=== PATIENT | male | born 1980 | race Caucasian/White ===

== ENCOUNTER 2017-03-13 07:20 | Inpatient (IN) ==
--- NOTE | 2017-03-11 17:01 | XRay Report ---
CLINICAL INFORMATION: Preoperative evaluation TECHNIQUE: Upright PA and lateral chest x-ray COMPARISON: None. FINDINGS: Lungs are negative. No parenchymal infiltrate or mass. Heart size and vascularity are normal. No pulmonary congestion. No pulmonary edema. Karie and mediastinum are negative. No pleural fluid. Incidental note is made of a catheter consistent with ventriculoperitoneal shunt catheter. IMPRESSION: Negative PA and lateral chest x-ray Interpreted and Authenticated by: Tom Field 03/11/17
[2017-03-11 18:13] LABS: Basophils # (Auto) 0 K/mcL (0.0-0.3); Basophils % (Auto) 0.7 % (0.0-2.0); Eosinophils # (Auto) 0 K/mcL (0.0-0.7); Eosinophils % (Auto) 0.4 % (0.0-7.0); Granulocytes % (Auto) 66.8 % (38.0-78.0); Lymphocytes # (Auto) 1.5 K/mcL (1.5-4.8); Lymphocytes % (Auto) 22.7 % (15.5-49.0); Mean Cell Volume 89.8 fL (80.0-100.0); Mean Corpuscular HGB Conc 33.8 g/dL (31.0-36.0); Mean Corpuscular Hemoglobin 30.4 pg (26.0-34.0); Monocytes # (Auto) 0.6 K/mcL (0.1-0.9); Monocytes % (Auto) 9.4 % (1.0-12.0); Platelet Count 171 K/mcL (140-440); Red Cell Distribution Width 12.1 % (11.5-14.5)
[2017-03-11 18:26] LABS: ALT/SGPT 27 U/l (0-40); Albumin 4.3 gm/dL (3.2-5.2); Albumin/Globulin Ratio 1.4 (1.0-2.3); Alkaline Phosphatase 92 U/L (39-117); Blood Urea Nitrogen 13 mg/dl (6-20)
[~2017-03-13 07:20] MED LIST: cefOXitin 2 GM in DEXTROSE 5% IN WATER 50 ML IV SCH
[2017-03-13] MEDS ORDERED: LIDOCAINE HCL/PF 100 MG/5 ML SYRINGE IV ONE (08:10)
[2017-03-13] MEDS ORDERED: ROCURONIUM 10 MG/ML ML IV ONE (08:10)
[2017-03-13] MEDS ORDERED: MIDAZOLAM 5 MG/5 ML VIAL IV ONE (08:10)
[2017-03-13] MEDS ORDERED: GLYCOPYRROLATE 0.2 MG/ML VIAL IV ONE (08:10)
[2017-03-13] MEDS ORDERED: ONDANSETRON 4 MG/2 ML VIAL IV ONE (08:10)
[2017-03-13] MEDS ORDERED: DEXAMETHASONE 10 MG/ML VIAL IV ONE (08:10)
[2017-03-13] MEDS ORDERED: PROPOFOL 200 MG/20 ML VIAL IV ONE (08:10)
[2017-03-13] MEDS ORDERED: fentaNYL 100 MCG/2 ML VIAL IV ONE (08:10)
[2017-03-13] MEDS ORDERED: METOPROLOL TARTRATE 5 MG/5 ML VIAL IV PRN (09:02)
[2017-03-13] MEDS ORDERED: FLUMAZENIL 0.1 MG/ML ML IV PRN (09:02)
[2017-03-13] MEDS ORDERED: METHOCARBAMOL 1,000 MG/10 ML VIAL IV PRN (09:02)
[2017-03-13] MEDS ORDERED: IPRATROPIUM/ALBUTEROL 3 ML AMPUL.NEB NEB PRN (09:02)
[2017-03-13] MEDS ORDERED: MEPERIDINE 25 MG/ML SYRINGE IV PRN (09:02)
[2017-03-13] MEDS ORDERED: fentaNYL 100 MCG/2 ML VIAL IV PRN (09:02)
[2017-03-13] MEDS ORDERED: NALOXONE HCL 0.4 MG/ML VIAL IV PRN (09:02)
[2017-03-13] MEDS ORDERED: ePHEDrine 50 MG/ML AMPUL IV PRN (09:02)
[2017-03-13] MEDS ORDERED: diphenhydrAMINE 50 MG/ML VIAL IV PRN (09:02)
[2017-03-13] MEDS ORDERED: ATROPINE SULFATE 0.4 MG/ML VIAL IV PRN (09:02)
[2017-03-13] MEDS ORDERED: ONDANSETRON 4 MG/2 ML VIAL IV PRN (09:02)
[2017-03-13] MEDS ORDERED: BENZOCAINE/MENTHOL 1 LOZENGE PO PRN (09:02)
[2017-03-13] MEDS ORDERED: LACTATED RINGERS 1,000 ML IV SCH (09:15)
--- NOTE | 2017-03-13 09:31 | Brief Operative Note ---
Date of procedure: 03/13/17 Pre-op diagnosis: PERITONEAL CYST ,V-P CATHETER Post-op diagnosis: other (PERITONEAL CYST AND V-P CATHETER) Procedure: LAPAROTOMY WITH DRAINAGE OF PERITONEAL CYST AND REPOSITION OF PERITONEAL CATHETER Grafts/Implants: No Anesthesia: GETA Findings: VERY LARGE THICK WALLED CYST SURROUNDING PERITONEAL PORTION OF V-P SHUNT Complications: none Surgeon: Jay Montejo Estimated blood loss (cc): 15 Specimens Removed/Pathology: none sent Condition: stable Disposition: PACU
--- NOTE | 2017-03-13 09:41 | XRay Report ---
CLINICAL INFORMATION: Postsurgical follow-up. Instrument count. Status post repositioning of a peritoneal dialysis catheter TECHNIQUE: AP, supine abdomen COMPARISON: None. FINDINGS: There is a peritoneal dialysis catheter. There are skin esha in a vertical midline incision. No other radiopaque foreign body within the abdomen. No surgical instrument or sponge. Bowel gas pattern is unremarkable. IMPRESSION: Negative supine abdomen for instrument count Interpreted and Authenticated by: Tom Field 03/13/17
[2017-03-13] MEDS: HYDROmorphone 2 MG/ML SYRINGE IV PRN ×5 (10:00→22:59)
[2017-03-13] MEDS ORDERED: ALBUTEROL SULFATE 1 PUFF INHALER INH PRN (13:59)
[2017-03-13] MEDS: 0.9 % SODIUM CHLORIDE 1,000 ML IV SCH (14:34)
[2017-03-13] MEDS: 0.9 % SODIUM CHLORIDE 10 ML SYRINGE IV SCH ×2 (14:53→23:00)
[2017-03-13] MEDS: PANTOPRAZOLE 40 MG PACKET PO SCH (17:35)
[2017-03-13] MEDS: ONDANSETRON 4 MG/2 ML VIAL IV PRN (22:49)
[2017-03-14] MEDS: ONDANSETRON 4 MG/2 ML VIAL IV PRN ×2 (03:07→06:49)
[2017-03-14] MEDS: 0.9 % SODIUM CHLORIDE 10 ML SYRINGE IV SCH ×4 (03:07→21:53)
[2017-03-14] MEDS: HYDROmorphone 2 MG/ML SYRINGE IV PRN ×3 (03:15→13:32)
[2017-03-14] MEDS: PANTOPRAZOLE 40 MG PACKET PO SCH (08:22)
[2017-03-14] MEDS: 0.9 % SODIUM CHLORIDE 1,000 ML IV SCH ×3 (09:55→19:30)
--- NOTE | 2017-03-14 12:37 | General Surgery Progress Note ---
Subjective Patient reports: still having pain, no flatus, no bowel movement, nausea, vomiting, afebrile Narrative: Note initiated : 03/14/17 at 12:35 pm Service Date, if different from initiated Date: [] Patient: Nirmal Chow 36 y/o M admitted on for Reposition Peritoneal Catheter. Chief Complaint: [Patient has had progressive abdominal distention overnight. He had decreased urine output and had emesis 4 with a total volume approaching 1 L. He has hiccups and heartburn. He has been afebrile. At this time he only complains of tightness in his abdomen. He has not had any flatus.] Objective Temp Pulse Resp BP Pulse Ox 98.2 F 84 16 118/76 96 03/14/17 11:26 03/14/17 11:26 03/14/17 11:26 03/14/17 11:26 03/14/17 11:26 - Additional Data Intake & Output - Last 24 hours: Intake & Output 03/12/17 03/13/17 03/14/17 03/15/17 05:59 05:59 05:59 05:59 Intake Total 2300 / 2300 1088 / 1088 Output Total 4705 / 4705 345 / 345 Balance -2405 / -2405 743 / 743 Weight 156 lb 11.2 oz 156 lb 11.2 oz - General physical appearance chronically ill - Neck no venous distension - Respiratory clear to auscultation - Cardiovascular Cardiovascular exam: Present: normal rate and rhythm, RRR, +S1, +S2. Absent: gallop, JVD, systolic murmur - Abdomen tender, distended (Abdomen is tightly distended with rare active bowel sounds. 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
--- NOTE | 2017-03-14 13:38 | XRay Report ---
CLINICAL INFORMATION: Previous abdominal surgery. Probable ileus. TECHNIQUE: Supine and upright abdomen COMPARISON: 03/13/2017 FINDINGS: There is a catheter within the abdomen, unchanged. There are skin esha in a vertical midline incision. There is gas throughout the small bowel with mild dilatation. Maximum small bowel diameter measures approximately 3.5 cm. There are small bowel air-fluid levels. There is gas and fecal material ascending colon. No significant gas within the distal transverse colon, descending colon, or sigmoid colon. No pneumoperitoneum. No biliary or portal venous gas. Dilated gas-filled small bowel is a new finding since 03/13/2017. Findings may be due to postoperative ileus although mechanical small bowel obstruction is possible. Continued follow-up recommended. IMPRESSION: 1. Abnormal bowel gas pattern with dilated gas-filled small bowel and air-fluid levels. 2. Findings are new since 03/13/2017 3. Appearance may be consistent with mechanical small bowel obstruction or postoperative ileus. Interpreted and Authenticated by: Tom Field 03/14/17
[2017-03-14 16:30] LABS: Basophils # (Auto) 0 K/mcL (0.0-0.3); Basophils % (Auto) 0 % (0.0-2.0); Eosinophils # (Auto) 0 K/mcL (0.0-0.7); Eosinophils % (Auto) 0 % (0.0-7.0); Granulocytes % (Auto) 85.2 % (38.0-78.0); Lymphocytes # (Auto) 0.9 K/mcL (1.5-4.8); Lymphocytes % (Auto) 6.3 % (15.5-49.0); Mean Cell Volume 90.3 fL (80.0-100.0); Mean Corpuscular HGB Conc 33.4 g/dL (31.0-36.0); Mean Corpuscular Hemoglobin 30.2 pg (26.0-34.0); Monocytes # (Auto) 1.2 K/mcL (0.1-0.9); Monocytes % (Auto) 8.5 % (1.0-12.0); Platelet Count 188 K/mcL (140-440); RBC 5.37 M/mcL (4.50-5.90); Red Cell Distribution Width 12.7 % (11.5-14.5)
[2017-03-14 16:53] LABS: ALT/SGPT 22 U/l (0-40); Albumin/Globulin Ratio 1.2 (1.0-2.3); Alkaline Phosphatase 86 U/L (39-117); Bilirubin,Direct < 0.2 mg/dL (0.0-0.3); Blood Urea Nitrogen 10 mg/dl (6-20); Gamma Glutamyl Transpeptidase 11 U/L (8-61); Magnesium 1.8 mg/dL (1.6-2.5); Uric Acid 3.1 mg/dL (2.5-8.0)
[2017-03-14] MEDS ORDERED: POTASSIUM PHOSPHATE 40 MEQ in DEXTROSE 5% IN WATER 500 ML IV ONE (17:09)
[2017-03-14] MEDS: METOCLOPRAMIDE 10 MG/2 ML VIAL IV SCH ×2 (17:43→23:36)
[2017-03-14] MEDS: PANTOPRAZOLE 40 MG VIAL IV SCH (17:43)
[2017-03-14] MEDS ORDERED: POTASSIUM PHOSPHATE 22 MEQ/5 ML VIAL IV ONE (19:13)
--- NOTE | 2017-03-14 19:13 | XRay Report ---
CLINICAL INFORMATION: Nasogastric tube placement TECHNIQUE: AP portable upright abdomen x-ray COMPARISON: 03/14/2017 FINDINGS: Esophagogastric tube in the stomach. The sidehole of this catheter is in the body of the stomach with the tip directed toward the fundus. There is persistent dilated gas-filled small bowel within the abdomen. A sending colon and hepatic flexure gas-filled. Transverse colon and descending colon are not visualized. No pneumoperitoneum IMPRESSION: Esophagogastric tube in the stomach. Interpreted and Authenticated by: Tom Field 03/14/17
[2017-03-15] MEDS: ONDANSETRON 4 MG/2 ML VIAL IV PRN (03:24)
[2017-03-15] MEDS: METOCLOPRAMIDE 10 MG/2 ML VIAL IV SCH ×4 (05:20→23:24)
[2017-03-15] MEDS: 0.9 % SODIUM CHLORIDE 10 ML SYRINGE IV SCH ×3 (05:44→22:28)
[2017-03-15] MEDS: 0.9 % SODIUM CHLORIDE 1,000 ML IV SCH ×5 (05:50→23:24)
[2017-03-15 07:08] LABS: Basophils # (Auto) 0.1 K/mcL (0.0-0.3); Basophils % (Auto) 0.6 % (0.0-2.0); Eosinophils # (Auto) 0 K/mcL (0.0-0.7); Eosinophils % (Auto) 0.1 % (0.0-7.0); Granulocytes % (Auto) 81.5 % (38.0-78.0); Lymphocytes # (Auto) 1.1 K/mcL (1.5-4.8); Lymphocytes % (Auto) 8.3 % (15.5-49.0); Mean Corpuscular HGB Conc 34.3 g/dL (31.0-36.0); Mean Corpuscular Hemoglobin 30.9 pg (26.0-34.0); Monocytes # (Auto) 1.3 K/mcL (0.1-0.9); Monocytes % (Auto) 9.5 % (1.0-12.0); Platelet Count 161 K/mcL (140-440); RBC 4.73 M/mcL (4.50-5.90); Red Cell Distribution Width 12.9 % (11.5-14.5)
[2017-03-15] MEDS: PANTOPRAZOLE 40 MG VIAL IV SCH ×2 (07:30→17:12)
[2017-03-15 07:46] LABS: ALT/SGPT 20 U/l (0-40); Albumin 3.3 gm/dL (3.2-5.2); Albumin/Globulin Ratio 1.1 (1.0-2.3); Alkaline Phosphatase 71 U/L (39-117); Bilirubin,Direct < 0.2 mg/dL (0.0-0.3); Blood Urea Nitrogen 8 mg/dl (6-20); Gamma Glutamyl Transpeptidase 12 U/L (8-61); Magnesium 1.6 mg/dL (1.6-2.5); Uric Acid 2.4 mg/dL (2.5-8.0)
[2017-03-15] MEDS ORDERED: MAGNESIUM SULFATE 32.48 MEQ in DEXTROSE 5% IN WATER 50 ML IV ONE (10:11)
[2017-03-15] MEDS ORDERED: POTASSIUM PHOSPHATE 40 MEQ in DEXTROSE 5% IN WATER 500 ML IV ONE (10:12)
--- NOTE | 2017-03-15 11:05 | XRay Report ---
CLINICAL INFORMATION: Follow-up postsurgical ileus TECHNIQUE: AP supine and upright abdomen COMPARISON: 03/14/2017 and 03/13/2017 FINDINGS: Esophagogastric tube in the stomach. There is small bowel gas with mild dilatation. Dilatation appears slightly improved. There is gas and fecal material within the colon. Splenic flexure is visualized. Overall appearance is mildly improved since 03/14/2017. No pneumoperitoneum. No biliary or portal venous gas. IMPRESSION: Slight interval improvement as above Interpreted and Authenticated by: Tom Field 03/15/17
--- NOTE | 2017-03-15 12:34 | General Surgery Progress Note ---
Subjective Patient reports: feels better, pain is less, no flatus, no bowel movement, nausea, vomiting, afebrile Narrative: Note initiated : 03/15/17 at 12:32 pm Service Date, if different from initiated Date: [] Patient: Nirmal Chow 36 y/o M admitted on 03/14/17 for Reposition Peritoneal Catheter. Chief Complaint: [Patient had more nausea with vomiting last evening and the nasogastric tube has been placed. He has about 500 cc of NG output since the insertion of the nasogastric tube. He states that he feels better. His abdomen is less distended and is softer. Abdominal x-rays shows slightly improved ileus with movement of gas into the descending and sigmoid colon. He also has a moderate amount of solid stool.] Objective Temp Pulse Resp BP Pulse Ox 97.8 F 100 H 16 112/72 94 03/15/17 11:25 03/15/17 03:46 03/15/17 11:25 03/15/17 11:25 03/15/17 11:25 - Additional Data Intake & Output - Last 24 hours: Intake & Output 03/13/17 03/14/17 03/15/17 03/16/17 05:59 05:59 05:59 05:59 Intake Total 2300 / 2300 2088 / 2088 Output Total 4705 / 4705 2171 / 2171 150 / 150 Balance -2405 / -2405 -83 / -83 -150 / -150 Weight 156 lb 11.2 oz 171 lb 8 oz - General physical appearance no distress - ENT no congestion - Neck no masses, no bruits, trachea midline, no lymphadectomy, no venous distension - Respiratory normal expansion, normal respiratory effort, clear to percussion, clear to auscultation - Cardiovascular Cardiovascular exam: Present: normal rate and rhythm, RRR, +S1, +S2. Absent: JVD - Abdomen tender (Mildly tender abdomen with hypoactive bowel sounds; incision looks good) - Integumentary no rash, no growths, no abnormal pigmentation - Psychiatric oriented to time, oriented to person, oriented to place, speech is normal, memory intact - Labs 03/15/17 05:50 03/15/17 05:50 Diabetes panel 03/14/17 03/15/17 Range/Units 13:15 05:50 Sodium 142 141 (133-145) mmol/L Potassium 3.8 3.9 (3.3-5.1) mmol/L Chloride 102 101 (96-108) mmol/L Carbon Dioxide 26 28 (22-30) mmol/L BUN 10 8 (6-20) mg/dl Creatinine 1.0 0.8 (0.7-1.2) mg/dl Glucose 140 H 117 H (70-105) mg/dL Calcium 9.4 8.9 (8.6-10.4) mg/dl AST 21 21 (0-37) U/l ALT 22 20 (0-40) U/l Alkaline Phosphatase 86 71 (39-117) U/L Total Protein 7.3 6.3 (5.9-8.4) gm/dL Albumin 4.0 3.3 (3.2-5.2) gm/dL Triglycerides 46 47 (<150) mg/dl Calcium panel 03/14/17 03/15/17 Range/Units 13:15 05:50 Calcium 9.4 8.9 (8.6-10.4) mg/dl Phosphorus 2.3 L 2.5 L (2.7-4.5) mg/dL Albumin 4.0 3.3 (3.2-5.2) gm/dL Pituitary panel 03/14/17 03/15/17 Range/Units 13:15 05:50 Sodium 142 141 (133-145) mmol/L Potassium 3.8 3.9 (3.3-5.1) mmol/L Chloride 102 101 (96-108) mmol/L Carbon Dioxide 26 28 (22-30) mmol/L BUN 10 8 (6-20) mg/dl Creatinine 1.0 0.8 (0.7-1.2) mg/dl Glucose 140 H 117 H (70-105) mg/dL Calcium 9.4 8.9 (8.6-10.4) mg/dl Adrenal panel 03/14/17 03/15/17 Range/Units 13:15 05:50 Sodium 142 141 (133-145) mmol/L Potassium 3.8 3.9 (3.3-5.1) mmol/L Chloride 102 101 (96-108) mmol/L Carbon Dioxide 26 28 (22-30) mmol/L BUN 10 8 (6-20) mg/dl Creatinine 1.0 0.8 (0.7-1.2) mg/dl Glucose 140 H 117 H (70-105) mg/dL Calcium 9.4 8.9 (8.6-10.4) mg/dl Total Bilirubin 0.4 0.5 (0.0-1.0) mg/dL AST 21 21 (0-37) U/l ALT 22 20 (0-40) U/l Alkaline Phosphatase 86 71 (39-117) U/L Total Protein 7.3 6.3 (5.9-8.4) gm/dL Albumin 4.0 3.3 (3.2-5.2) gm/dL Assessment and Plan (1) Adynamic ileus Status: Acute Assessment and plan: Patient will be switched to inpatient Continue on nasogastric suction 2 view abdominal x-ray in the morning Current Visit: Yes (2) Peritoneal fluid collection Status: Acute Current Visit: No (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
[2017-03-16] MEDS: 0.9 % SODIUM CHLORIDE 10 ML SYRINGE IV SCH ×3 (05:20→23:26)
[2017-03-16] MEDS: METOCLOPRAMIDE 10 MG/2 ML VIAL IV SCH ×4 (05:20→23:26)
[2017-03-16] MEDS: 0.9 % SODIUM CHLORIDE 1,000 ML IV SCH ×4 (06:16→23:27)
[2017-03-16 06:57] LABS: Basophils # (Auto) 0.1 K/mcL (0.0-0.3); Basophils % (Auto) 0.6 % (0.0-2.0); Eosinophils # (Auto) 0.1 K/mcL (0.0-0.7); Eosinophils % (Auto) 1.3 % (0.0-7.0); Granulocytes % (Auto) 72.7 % (38.0-78.0); Lymphocytes # (Auto) 1.4 K/mcL (1.5-4.8); Lymphocytes % (Auto) 14.4 % (15.5-49.0); Mean Cell Volume 90.7 fL (80.0-100.0); Mean Corpuscular HGB Conc 34.3 g/dL (31.0-36.0); Mean Corpuscular Hemoglobin 31.1 pg (26.0-34.0); Monocytes # (Auto) 1.1 K/mcL (0.1-0.9); Platelet Count 125 K/mcL (140-440); RBC 4.01 M/mcL (4.50-5.90); Red Cell Distribution Width 12.4 % (11.5-14.5)
[2017-03-16 07:16] LABS: ALT/SGPT 18 U/l (0-40); Albumin/Globulin Ratio 1.3 (1.0-2.3); Alkaline Phosphatase 57 U/L (39-117); Bilirubin,Direct < 0.2 mg/dL (0.0-0.3); Blood Urea Nitrogen 8 mg/dl (6-20); Gamma Glutamyl Transpeptidase 11 U/L (8-61); Magnesium 2.1 mg/dL (1.6-2.5); Uric Acid 2.2 mg/dL (2.5-8.0)
--- NOTE | 2017-03-16 07:31 | XRay Report ---
CLINICAL INFORMATION: Postoperative ileus TECHNIQUE: AP supine and upright abdomen COMPARISON: Previous examinations dated 03/15/2017, 03/14/2017 FINDINGS: Improved bowel gas pattern. There is persistent small bowel gas with mild dilatation. There is increased gas and fecal material within the colon. No pneumoperitoneum. No biliary or portal venous gas. No pneumatosis. IMPRESSION: 1. Improved examination. 2. Mild persistent distended small bowel Interpreted and Authenticated by: Tom Field 03/16/17
[2017-03-16] MEDS: PANTOPRAZOLE 40 MG VIAL IV SCH ×2 (07:54→18:02)
[2017-03-16] MEDS: POTASSIUM PHOSPHATE 40 MEQ in DEXTROSE 5% IN WATER 500 ML IV SCH ×2 (09:13→12:32)
--- NOTE | 2017-03-16 15:47 | General Surgery Progress Note ---
Subjective Patient reports: feels better, pain is less, voiding w/o difficulty, flatus, no bowel movement, afebrile Narrative: Note initiated : 03/16/17 at 3:45 pm Service Date, if different from initiated Date: [] Patient: Nrimal Chow a 36 y/o M admitted on 03/14/17 for Reposition Peritoneal Catheter. Chief Complaint: [Mr. Chow feels much better. He had multiple episodes of flatus today though he has not had a bowel movement. His pain is well controlled and his abdominal distention is much better. He denies nausea and his nasogastric output has decreased and is less bilious. He remains afebrile and his white blood count is normal.] Objective Temp Pulse Resp BP Pulse Ox 98.3 F 84 18 118/78 94 03/16/17 12:00 03/16/17 12:00 03/16/17 12:00 03/16/17 12:00 03/16/17 12:00 - Additional Data Intake & Output - Last 24 hours: Intake & Output 03/14/17 03/15/17 03/16/17 03/17/17 05:59 05:59 05:59 05:59 Intake Total 2300 / 2300 2088 / 2088 1930 / 1930 1422 / 1422 Output Total 4705 / 4705 2171 / 2171 1625 / 1625 1994 / 1994 Balance -2405 / -2405 -83 / -83 305 / 305 -573 / -573 Weight 156 lb 11.2 oz 171 lb 8 oz 168 lb 168 lb - General physical appearance no distress - Neck no masses, no venous distension - Respiratory normal respiratory effort, clear to auscultation - Cardiovascular Cardiovascular exam: Present: normal rate and rhythm, RRR, +S1, +S2. Absent: JVD - Abdomen soft, tender (Patient has good active bowel sounds. His incision looks good. His abdominal wall is much softer) - Integumentary no rash, no growths, no abnormal pigmentation - Neurologic normal coordination, normal sensation - Musculoskeletal normal gait, normal posture - Psychiatric oriented to time, oriented to person, oriented to place, speech is normal - Labs 03/16/17 04:50 03/16/17 04:50 Diabetes panel 03/16/17 Range/Units 04:50 Sodium 142 (133-145) mmol/L Potassium 3.6 (3.3-5.1) mmol/L Chloride 106 (96-108) mmol/L Carbon Dioxide 27 (22-30) mmol/L BUN 8 (6-20) mg/dl Creatinine 0.8 (0.7-1.2) mg/dl Glucose 98 (70-105) mg/dL Calcium 8.0 L (8.6-10.4) mg/dl AST 19 (0-37) U/l ALT 18 (0-40) U/l Alkaline Phosphatase 57 (39-117) U/L Total Protein 5.4 L (5.9-8.4) gm/dL Albumin 3.0 L (3.2-5.2) gm/dL Triglycerides 59 (<150) mg/dl Calcium panel 03/16/17 Range/Units 04:50 Calcium 8.0 L (8.6-10.4) mg/dl Phosphorus 2.2 L (2.7-4.5) mg/dL Albumin 3.0 L (3.2-5.2) gm/dL Pituitary panel 03/16/17 Range/Units 04:50 Sodium 142 (133-145) mmol/L Potassium 3.6 (3.3-5.1) mmol/L Chloride 106 (96-108) mmol/L Carbon Dioxide 27 (22-30) mmol/L BUN 8 (6-20) mg/dl Creatinine 0.8 (0.7-1.2) mg/dl Glucose 98 (70-105) mg/dL Calcium 8.0 L (8.6-10.4) mg/dl Adrenal panel 03/16/17 Range/Units 04:50 Sodium 142 (133-145) mmol/L Potassium 3.6 (3.3-5.1) mmol/L Chloride 106 (96-108) mmol/L Carbon Dioxide 27 (22-30) mmol/L BUN 8 (6-20) mg/dl Creatinine 0.8 (0.7-1.2) mg/dl Glucose 98 (70-105) mg/dL Calcium 8.0 L (8.6-10.4) mg/dl Total Bilirubin 0.5 (0.0-1.0) mg/dL AST 19 (0-37) U/l ALT 18 (0-40) U/l Alkaline Phosphatase 57 (39-117) U/L Total Protein 5.4 L (5.9-8.4) gm/dL Albumin 3.0 L (3.2-5.2) gm/dL Assessment and Plan (1) Adynamic ileus Status: Acute Assessment and plan: Nasogastric tube is discontinued If he remains stable will reinstitute liquid diet in the morning Current Visit: Yes (2) Peritoneal fluid collection Status: Acute Current Visit: No (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
[2017-03-17] MEDS: 0.9 % SODIUM CHLORIDE 1,000 ML IV SCH ×2 (06:05→13:02)
[2017-03-17] MEDS: 0.9 % SODIUM CHLORIDE 10 ML SYRINGE IV SCH ×3 (06:06→23:37)
[2017-03-17] MEDS: METOCLOPRAMIDE 10 MG/2 ML VIAL IV SCH ×3 (06:33→17:58)
[2017-03-17 07:11] LABS: Basophils # (Auto) 0 K/mcL (0.0-0.3); Basophils % (Auto) 0.4 % (0.0-2.0); Eosinophils # (Auto) 0.2 K/mcL (0.0-0.7); Eosinophils % (Auto) 1.5 % (0.0-7.0); Granulocytes % (Auto) 74.4 % (38.0-78.0); Lymphocytes # (Auto) 1.4 K/mcL (1.5-4.8); Lymphocytes % (Auto) 13.6 % (15.5-49.0); Mean Cell Volume 88.7 fL (80.0-100.0); Mean Corpuscular Hemoglobin 30.2 pg (26.0-34.0); Monocytes # (Auto) 1.1 K/mcL (0.1-0.9); Monocytes % (Auto) 10.1 % (1.0-12.0); Platelet Count 133 K/mcL (140-440); RBC 4.64 M/mcL (4.50-5.90); Red Cell Distribution Width 12.1 % (11.5-14.5)
[2017-03-17 07:25] LABS: ALT/SGPT 32 U/l (0-40); Albumin 3.4 gm/dL (3.2-5.2); Albumin/Globulin Ratio 1.1 (1.0-2.3); Alkaline Phosphatase 69 U/L (39-117); Bilirubin,Direct 0.3 mg/dL (0.0-0.3); Blood Urea Nitrogen 6 mg/dl (6-20); Gamma Glutamyl Transpeptidase 25 U/L (8-61); Magnesium 1.8 mg/dL (1.6-2.5); Uric Acid 2.1 mg/dL (2.5-8.0)
[2017-03-17] MEDS: PANTOPRAZOLE 40 MG VIAL IV SCH ×2 (07:39→17:12)
--- NOTE | 2017-03-17 07:58 | XRay Report ---
CLINICAL INFORMATION: Postsurgical follow-up. Abdominal distention. TECHNIQUE: AP supine and upright abdomen COMPARISON: Multiple previous examinations including studies dated 03/16/2017, 03/15/2017, 03/14/2017, 03/13/2017 FINDINGS: Status post removal of nasogastric tube. Right-sided catheter with its tip in the pelvis remains unchanged. Skin esha remain present in a vertical midline incision. There continues to be gas and fecal material within the colon. There is persistent gas-filled small bowel. Small bowel is dilated to 4.5 cm. Dilatation may be slightly increased since removal of esophagogastric tube. There are scattered air-fluid levels. No pneumoperitoneum. No biliary or portal venous gas. No pneumatosis. Findings may be secondary to postoperative ileus. Partial mechanical small bowel structures and is possible. Continued follow-up recommended IMPRESSION: 1. Status post removal of esophagogastric tube 2. Gas and fecal material within the colon. Dilated gas-filled small bowel persists. Interpreted and Authenticated by: Tom Field 03/17/17
--- NOTE | 2017-03-17 14:30 | General Surgery Progress Note ---
Subjective Patient reports: feels better, pain is less, flatus, no bowel movement, afebrile Narrative: Note initiated : 03/17/17 at 2:28 pm Service Date, if different from initiated Date: [] Patient: Nirmal Chow 36 y/o M admitted on 03/14/17 for Reposition Peritoneal Catheter. Chief Complaint: [. He has had multiple episodes of flatus but still no bowel movement. He does not have an increased abdominal pain. He denies nausea. He states that his overall status is improved. Abdominal x-ray shows dilated colon and small bowel with stool now on the left side. He will get a fleets enema and will be started on clear liquids.] Objective Temp Pulse Resp BP Pulse Ox 97.6 F 74 16 109/60 95 03/17/17 11:42 03/17/17 11:42 03/17/17 11:42 03/17/17 11:42 03/17/17 07:39 - Additional Data Intake & Output - Last 24 hours: Intake & Output 03/15/17 03/16/17 03/17/17 03/18/17 05:59 05:59 05:59 05:59 Intake Total 8 / 2088 1930 / 1930 2422 / 2422 1997 / 1997 Output Total 2171 / 2171 1625 / 1625 3495 / 3495 1050 / 1050 Balance -83 / -83 305 / 305 -1073 / -1073 948 / 948 Weight 171 lb 8 oz 168 lb 168 lb - General physical appearance no distress - ENT no congestion - Neck no venous distension - Respiratory normal respiratory effort, clear to auscultation - Cardiovascular Cardiovascular exam: Present: normal rate and rhythm, RRR, +S1, +S2. Absent: JVD - Abdomen tender (Abdomen is mildly tender but he has active bowel sounds. His incision looks good. His abdomen remains soft.) - Integumentary no rash, no growths, no abnormal pigmentation - Neurologic normal coordination, normal sensation - Psychiatric oriented to time, oriented to person, oriented to place, speech is normal, memory intact - Labs 03/17/17 05:40 03/17/17 05:40 Diabetes panel 03/17/17 Range/Units 05:40 Sodium 141 (133-145) mmol/L Potassium 3.7 (3.3-5.1) mmol/L Chloride 103 (96-108) mmol/L Carbon Dioxide 22 (22-30) mmol/L BUN 6 (6-20) mg/dl Creatinine 0.7 (0.7-1.2) mg/dl Glucose 87 (70-105) mg/dL Calcium 8.7 (8.6-10.4) mg/dl AST 29 (0-37) U/l ALT 32 (0-40) U/l Alkaline Phosphatase 69 (39-117) U/L Total Protein 6.4 (5.9-8.4) gm/dL Albumin 3.4 (3.2-5.2) gm/dL Triglycerides 74 (<150) mg/dl Calcium panel 03/17/17 Range/Units 05:40 Calcium 8.7 (8.6-10.4) mg/dl Phosphorus 2.5 L (2.7-4.5) mg/dL Albumin 3.4 (3.2-5.2) gm/dL Pituitary panel 03/17/17 Range/Units 05:40 Sodium 141 (133-145) mmol/L Potassium 3.7 (3.3-5.1) mmol/L Chloride 103 (96-108) mmol/L Carbon Dioxide 22 (22-30) mmol/L BUN 6 (6-20) mg/dl Creatinine 0.7 (0.7-1.2) mg/dl Glucose 87 (70-105) mg/dL Calcium 8.7 (8.6-10.4) mg/dl Adrenal panel 03/17/17 Range/Units 05:40 Sodium 141 (133-145) mmol/L Potassium 3.7 (3.3-5.1) mmol/L Chloride 103 (96-108) mmol/L Carbon Dioxide 22 (22-30) mmol/L BUN 6 (6-20) mg/dl Creatinine 0.7 (0.7-1.2) mg/dl Glucose 87 (70-105) mg/dL Calcium 8.7 (8.6-10.4) mg/dl Total Bilirubin 0.9 (0.0-1.0) mg/dL AST 29 (0-37) U/l ALT 32 (0-40) U/l Alkaline Phosphatase 69 (39-117) U/L Total Protein 6.4 (5.9-8.4) gm/dL Albumin 3.4 (3.2-5.2) gm/dL Assessment and Plan (1) Adynamic ileus Status: Acute Assessment and plan: fleets enema 1 Potassium phosphate 40 mEq Clear liquid diet Current Visit: Yes (2) Peritoneal fluid collection Status: Acute Current Visit: No (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
[2017-03-17] MEDS ORDERED: POTASSIUM PHOSPHATE 40 MEQ in DEXTROSE 5% IN WATER 500 ML IV ONE (14:33)
[2017-03-17] MEDS ORDERED: FLEETS ADULT ENEMA PR ONE (15:14)
[2017-03-18] MEDS: METOCLOPRAMIDE 10 MG/2 ML VIAL IV SCH ×4 (00:36→17:57)
[2017-03-18] MEDS: 0.9 % SODIUM CHLORIDE 1,000 ML IV SCH ×5 (00:37→21:25)
[2017-03-18] MEDS: ONDANSETRON 4 MG/2 ML VIAL IV PRN ×2 (02:15→06:13)
[2017-03-18] MEDS: 0.9 % SODIUM CHLORIDE 10 ML SYRINGE IV SCH ×2 (05:57→17:58)
[2017-03-18 07:05] LABS: Basophils # (Auto) 0 K/mcL (0.0-0.3); Basophils % (Auto) 0.5 % (0.0-2.0); Eosinophils # (Auto) 0.1 K/mcL (0.0-0.7); Eosinophils % (Auto) 1.4 % (0.0-7.0); Granulocytes % (Auto) 73.2 % (38.0-78.0); Lymphocytes # (Auto) 1.4 K/mcL (1.5-4.8); Lymphocytes % (Auto) 15.6 % (15.5-49.0); Mean Cell Volume 89.3 fL (80.0-100.0); Mean Corpuscular HGB Conc 34.3 g/dL (31.0-36.0); Mean Corpuscular Hemoglobin 30.7 pg (26.0-34.0); Monocytes # (Auto) 0.9 K/mcL (0.1-0.9); Monocytes % (Auto) 9.3 % (1.0-12.0); Platelet Count 158 K/mcL (140-440); RBC 4.56 M/mcL (4.50-5.90); Red Cell Distribution Width 12.2 % (11.5-14.5)
[2017-03-18 07:40] LABS: ALT/SGPT 53 U/l (0-40); Albumin 3.5 gm/dL (3.2-5.2); Albumin/Globulin Ratio 1.2 (1.0-2.3); Alkaline Phosphatase 70 U/L (39-117); Bilirubin,Direct 0.4 mg/dL (0.0-0.3); Blood Urea Nitrogen 7 mg/dl (6-20); Gamma Glutamyl Transpeptidase 35 U/L (8-61); Magnesium 1.8 mg/dL (1.6-2.5)
[2017-03-18] MEDS: PANTOPRAZOLE 40 MG VIAL IV SCH ×2 (08:15→17:57)
[2017-03-18] MEDS ORDERED: DIATRIZOATE MEGLU/DIATRIZO SOD 30 ML BOTTLE PO ONE (09:41)
--- NOTE | 2017-03-18 09:50 | XRay Report ---
CLINICAL INFORMATION: Postsurgical follow-up. Assess colon and evaluate for possible colonic obstruction TECHNIQUE: Water-soluble Gastrografin enema performed. COMPARISON: Multiple plain film examinations FINDINGS: The entire colon was opacified with visualization of the appendix. There are sigmoid diverticuli. No obstructing or constricting lesions. No obstruction. No contrast extravasation. IMPRESSION: 1. Mild sigmoid diverticulosis 2. Otherwise negative Gastrografin enema Interpreted and Authenticated by: Tom Field 03/18/17
--- NOTE | 2017-03-18 09:52 | XRay Report ---
CLINICAL INFORMATION: Postsurgical ileus TECHNIQUE: AP supine and upright abdomen COMPARISON: Previous examinations dated 03/17/2017, 03/16/2017, 03/15/2017, 03/14/2017 FINDINGS: There is colonic gas without dilatation. There is small bowel gas with mild small bowel dilatation. Small bowel currently measures approximately 3.5 cm in cross-sectional diameter. Overall appearance is improved. Findings are consistent with improved postoperative ileus. No pneumoperitoneum. No biliary or portal venous gas. No pneumatosis IMPRESSION: Findings consistent with improved postoperative ileus Interpreted and Authenticated by: Tom Field 03/18/17
--- NOTE | 2017-03-18 13:02 | General Surgery Progress Note ---
Subjective Patient reports: feels better, pain is less, flatus, bowel movement, nausea, vomiting, afebrile Narrative: Note initiated : 03/18/17 at 1:00 pm Service Date, if different from initiated Date: [] Patient: Nirmal Chow 36 y/o M admitted on 03/14/17 for Reposition Peritoneal Catheter. Chief Complaint: [Abdominal had vomiting earlier this morning. I had a Gastrografin enema done and this shows normal colon without any evidence of distal obstruction. He has had large volume bowel movements of mixed liquid and solid stool since then and states that he feels better. He does not have nausea at this time. He is otherwise stable and has no complaints] Objective Temp Pulse Resp BP Pulse Ox 98.4 F 95 H 16 114/73 93 03/18/17 11:16 03/18/17 03:06 03/18/17 11:16 03/18/17 11:16 03/18/17 11:16 - Additional Data Intake & Output - Last 24 hours: Intake & Output 03/16/17 03/17/17 03/18/17 03/19/17 05:59 05:59 05:59 05:59 Intake Total 1930 / 1930 2422 / 2422 3498 / 3498 1000 / 1000 Output Total 1625 / 1625 3495 / 3495 3925 / 3925 1100 / 1100 Balance 305 / 305 -1073 / -1073 -427 / -427 -100 / -100 Weight 168 lb 168 lb 165 lb - General physical appearance no distress, no pain, chronically ill - Neck no venous distension - Respiratory normal respiratory effort, clear to auscultation - Cardiovascular Cardiovascular exam: Present: normal rate and rhythm, RRR, +S1, +S2. Absent: JVD - Abdomen soft, non tender, bowel sounds (Abdomen is soft with minimal distention. He has good active bowel sounds. His incision looks good.) - Integumentary no rash, no growths, no abnormal pigmentation - Neurologic normal coordination, normal sensation - Labs 03/18/17 05:30 03/18/17 05:30 Diabetes panel 03/18/17 Range/Units 05:30 Sodium 141 (133-145) mmol/L Potassium 3.8 (3.3-5.1) mmol/L Chloride 103 (96-108) mmol/L Carbon Dioxide 22 (22-30) mmol/L BUN 7 (6-20) mg/dl Creatinine 0.7 (0.7-1.2) mg/dl Glucose 73 (70-105) mg/dL Calcium 8.9 (8.6-10.4) mg/dl AST 46 H (0-37) U/l ALT 53 H (0-40) U/l Alkaline Phosphatase 70 (39-117) U/L Total Protein 6.4 (5.9-8.4) gm/dL Albumin 3.5 (3.2-5.2) gm/dL Triglycerides 91 (<150) mg/dl Calcium panel 03/18/17 Range/Units 05:30 Calcium 8.9 (8.6-10.4) mg/dl Phosphorus 3.1 (2.7-4.5) mg/dL Albumin 3.5 (3.2-5.2) gm/dL Pituitary panel 03/18/17 Range/Units 05:30 Sodium 141 (133-145) mmol/L Potassium 3.8 (3.3-5.1) mmol/L Chloride 103 (96-108) mmol/L Carbon Dioxide 22 (22-30) mmol/L BUN 7 (6-20) mg/dl Creatinine 0.7 (0.7-1.2) mg/dl Glucose 73 (70-105) mg/dL Calcium 8.9 (8.6-10.4) mg/dl Adrenal panel 03/18/17 Range/Units 05:30 Sodium 141 (133-145) mmol/L Potassium 3.8 (3.3-5.1) mmol/L Chloride 103 (96-108) mmol/L Carbon Dioxide 22 (22-30) mmol/L BUN 7 (6-20) mg/dl Creatinine 0.7 (0.7-1.2) mg/dl Glucose 73 (70-105) mg/dL Calcium 8.9 (8.6-10.4) mg/dl Total Bilirubin 1.3 H (0.0-1.0) mg/dL AST 46 H (0-37) U/l ALT 53 H (0-40) U/l Alkaline Phosphatase 70 (39-117) U/L Total Protein 6.4 (5.9-8.4) gm/dL Albumin 3.5 (3.2-5.2) gm/dL Assessment and Plan (1) Adynamic ileus Status: Acute Assessment and plan: Milk of magnesia 30 cc every 4 hours 3 doses Follow-up abdominal series in the morning Continue on clear liquid diet Current Visit: Yes (2) Peritoneal fluid collection Status: Acute Current Visit: No (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
[2017-03-18] MEDS: MAGNESIUM HYDROXIDE 30 ML ORAL.SUSP PO SCH ×2 (13:07→22:31)
[2017-03-18 15:16] LABS: ALT/SGPT 56 U/l (0-40); Albumin 3.3 gm/dL (3.2-5.2); Albumin/Globulin Ratio 1.1 (1.0-2.3); Alkaline Phosphatase 70 U/L (39-117); Bilirubin,Direct 0.3 mg/dL (0.0-0.3); Blood Urea Nitrogen 8 mg/dl (6-20); Gamma Glutamyl Transpeptidase 40 U/L (8-61); Magnesium 1.8 mg/dL (1.6-2.5); Uric Acid 3.6 mg/dL (2.5-8.0)
[2017-03-19] MEDS: 0.9 % SODIUM CHLORIDE 10 ML SYRINGE IV SCH ×4 (00:01→21:15)
[2017-03-19] MEDS: MAGNESIUM HYDROXIDE 30 ML ORAL.SUSP PO SCH ×2 (02:58→07:16)
[2017-03-19] MEDS: METOCLOPRAMIDE 10 MG/2 ML VIAL IV SCH ×5 (05:43→23:34)
[2017-03-19 06:39] LABS: Basophils # (Auto) 0 K/mcL (0.0-0.3); Basophils % (Auto) 0.6 % (0.0-2.0); Eosinophils # (Auto) 0.1 K/mcL (0.0-0.7); Eosinophils % (Auto) 2.3 % (0.0-7.0); Granulocytes % (Auto) 62.5 % (38.0-78.0); Lymphocytes # (Auto) 1.5 K/mcL (1.5-4.8); Lymphocytes % (Auto) 22.8 % (15.5-49.0); Mean Cell Volume 88.7 fL (80.0-100.0); Mean Corpuscular HGB Conc 34.1 g/dL (31.0-36.0); Mean Corpuscular Hemoglobin 30.2 pg (26.0-34.0); Monocytes # (Auto) 0.8 K/mcL (0.1-0.9); Monocytes % (Auto) 11.8 % (1.0-12.0); Platelet Count 135 K/mcL (140-440); RBC 4.45 M/mcL (4.50-5.90); Red Cell Distribution Width 12.4 % (11.5-14.5)
[2017-03-19 06:54] LABS: ALT/SGPT 95 U/l (0-40); Albumin 3.4 gm/dL (3.2-5.2); Albumin/Globulin Ratio 1.4 (1.0-2.3); Alkaline Phosphatase 65 U/L (39-117); Bilirubin,Direct 0.2 mg/dL (0.0-0.3); Blood Urea Nitrogen 5 mg/dl (6-20); Gamma Glutamyl Transpeptidase 36 U/L (8-61); Magnesium 1.9 mg/dL (1.6-2.5); Uric Acid 3.4 mg/dL (2.5-8.0)
[2017-03-19] MEDS: PANTOPRAZOLE 40 MG VIAL IV SCH ×2 (07:23→17:44)
[2017-03-19] MEDS: 0.9 % SODIUM CHLORIDE 1,000 ML IV SCH (07:32)
--- NOTE | 2017-03-19 07:32 | XRay Report ---
CLINICAL INFORMATION: Postoperative ileus TECHNIQUE: AP supine and upright abdomen COMPARISON: Previous abdominal plain film studies dated 03/18/2017, 03/17/2017, 03/16/2017, 03/15/2017, 03/14/2017 FINDINGS: Bowel gas pattern is improved. There is small bowel gas with mild distention in the upper abdomen. There is gas throughout the colon. No pneumoperitoneum. No biliary or portal venous gas. No pneumatosis. IMPRESSION: Improved bowel gas pattern. Gas throughout the entire colon Interpreted and Authenticated by: Tom Field 03/19/17
--- NOTE | 2017-03-19 16:43 | General Surgery Progress Note ---
Subjective Patient reports: feels better, pain is less, tolerating liquids well, voiding w/ o difficulty, flatus, bowel movement, afebrile Narrative: Note initiated : 03/19/17 at 4:41 pm Service Date, if different from initiated Date: [] Patient: Nirmal Chow a 36 y/o M admitted on 03/14/17 for Reposition Peritoneal Catheter. Chief Complaint: [Patient continues to improve. He is tolerating liquids and does not have nausea or vomiting. He has had multiple small liquid stools with some increased flatus. He has minimal pain. His IV will be saline locked in his diet will be advanced.] Objective Temp Pulse Resp BP Pulse Ox 97.3 F 73 12 106/67 94 03/19/17 11:27 03/19/17 03:31 03/19/17 11:27 03/19/17 11:27 03/19/17 11:27 - Additional Data Intake & Output - Last 24 hours: Intake & Output 03/17/17 03/18/17 03/19/17 03/20/17 05:59 05:59 05:59 05:59 Intake Total 2422 / 2422 3498 / 3498 2680 / 2680 1900 / 1900 Output Total 3495 / 3495 3925 / 3925 1800 / 1800 1525 / 1525 Balance -1073 / -1073 -427 / -427 880 / 880 375 / 375 Weight 168 lb 165 lb 159 lb 159 lb - General physical appearance no distress, no pain - ENT no congestion - Neck no venous distension - Respiratory normal respiratory effort, clear to auscultation - Cardiovascular Cardiovascular exam: Present: normal rate and rhythm, RRR, +S1, +S2. Absent: JVD - Abdomen soft, non tender, bowel sounds (Abdomen is benign with good active bowel sounds and essentially no tenderness. His incision looks good.) - Integumentary no rash, no growths, no abnormal pigmentation - Psychiatric oriented to time, oriented to person, oriented to place, speech is normal, memory intact - Labs 03/19/17 04:30 03/19/17 04:30 Diabetes panel 03/19/17 Range/Units 04:30 Sodium 140 (133-145) mmol/L Potassium 3.6 (3.3-5.1) mmol/L Chloride 102 (96-108) mmol/L Carbon Dioxide 25 (22-30) mmol/L BUN 5 L (6-20) mg/dl Creatinine 0.7 (0.7-1.2) mg/dl Glucose 88 (70-105) mg/dL Calcium 8.7 (8.6-10.4) mg/dl AST 65 H (0-37) U/l ALT 95 H (0-40) U/l Alkaline Phosphatase 65 (39-117) U/L Total Protein 5.9 (5.9-8.4) gm/dL Albumin 3.4 (3.2-5.2) gm/dL Triglycerides 84 (<150) mg/dl Calcium panel 03/19/17 Range/Units 04:30 Calcium 8.7 (8.6-10.4) mg/dl Phosphorus 2.5 L (2.7-4.5) mg/dL Albumin 3.4 (3.2-5.2) gm/dL Pituitary panel 03/19/17 Range/Units 04:30 Sodium 140 (133-145) mmol/L Potassium 3.6 (3.3-5.1) mmol/L Chloride 102 (96-108) mmol/L Carbon Dioxide 25 (22-30) mmol/L BUN 5 L (6-20) mg/dl Creatinine 0.7 (0.7-1.2) mg/dl Glucose 88 (70-105) mg/dL Calcium 8.7 (8.6-10.4) mg/dl Adrenal panel 03/19/17 Range/Units 04:30 Sodium 140 (133-145) mmol/L Potassium 3.6 (3.3-5.1) mmol/L Chloride 102 (96-108) mmol/L Carbon Dioxide 25 (22-30) mmol/L BUN 5 L (6-20) mg/dl Creatinine 0.7 (0.7-1.2) mg/dl Glucose 88 (70-105) mg/dL Calcium 8.7 (8.6-10.4) mg/dl Total Bilirubin 0.8 (0.0-1.0) mg/dL AST 65 H (0-37) U/l ALT 95 H (0-40) U/l Alkaline Phosphatase 65 (39-117) U/L Total Protein 5.9 (5.9-8.4) gm/dL Albumin 3.4 (3.2-5.2) gm/dL Assessment and Plan (1) Adynamic ileus Status: Acute Assessment and plan: Adynamic ileus is significantly improved IV is saline locked Diet is advanced to regular Potential for discharge in the morning Current Visit: Yes (2) Peritoneal fluid collection Status: Acute Current Visit: No (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
--- NOTE | 2017-03-19 16:47 | General Surgery Progress Note ---
Subjective Patient reports: feels better, pain is less, tolerating liquids well, flatus, bowel movement, afebrile Narrative: Note initiated : 03/19/17 at 4:40 pm Service Date, if different from initiated Date: [] Patient: Nirmal Chow 36 y/o M admitted on 03/14/17 for Reposition Peritoneal Catheter. Chief Complaint: [patient feels much better. He denies nausea. He still has some abdominal distention. He has been afebrile. He states that he feels better than on yesterday.] Objective Temp Pulse Resp BP Pulse Ox 97.3 F 73 12 106/67 94 03/19/17 11:27 03/19/17 03:31 03/19/17 11:27 03/19/17 11:27 03/19/17 11:27 - Additional Data Intake & Output - Last 24 hours: Intake & Output 03/17/17 03/18/17 03/19/17 03/20/17 05:59 05:59 05:59 05:59 Intake Total 2422 / 2422 3498 / 3498 2680 / 2680 1900 / 1900 Output Total 3495 / 3495 3925 / 3925 1800 / 1800 1525 / 1525 Balance -1073 / -1073 -427 / -427 880 / 880 375 / 375 Weight 168 lb 165 lb 159 lb 159 lb - General physical appearance no distress, moderate pain - Eyes PERRL - ENT no congestion - Neck no venous distension - Respiratory normal respiratory effort, clear to auscultation - Cardiovascular Cardiovascular exam: Present: normal rate and rhythm, RRR, +S1, +S2. Absent: JVD - Abdomen soft, tender, surgical scars (incision is unremarkable there is mild distention ; he has a few active bowel sounds) - Integumentary no rash, no growths, no abnormal pigmentation - Neurologic normal coordination, normal sensation - Psychiatric oriented to time, oriented to person, oriented to place, speech is normal, memory intact - Labs 03/20/17 06:18 03/20/17 06:18 Diabetes panel 03/19/17 Range/Units 04:30 Sodium 140 (133-145) mmol/L Potassium 3.6 (3.3-5.1) mmol/L Chloride 102 (96-108) mmol/L Carbon Dioxide 25 (22-30) mmol/L BUN 5 L (6-20) mg/dl Creatinine 0.7 (0.7-1.2) mg/dl Glucose 88 (70-105) mg/dL Calcium 8.7 (8.6-10.4) mg/dl AST 65 H (0-37) U/l ALT 95 H (0-40) U/l Alkaline Phosphatase 65 (39-117) U/L Total Protein 5.9 (5.9-8.4) gm/dL Albumin 3.4 (3.2-5.2) gm/dL Triglycerides 84 (<150) mg/dl Calcium panel 03/19/17 Range/Units 04:30 Calcium 8.7 (8.6-10.4) mg/dl Phosphorus 2.5 L (2.7-4.5) mg/dL Albumin 3.4 (3.2-5.2) gm/dL Pituitary panel 03/19/17 Range/Units 04:30 Sodium 140 (133-145) mmol/L Potassium 3.6 (3.3-5.1) mmol/L Chloride 102 (96-108) mmol/L Carbon Dioxide 25 (22-30) mmol/L BUN 5 L (6-20) mg/dl Creatinine 0.7 (0.7-1.2) mg/dl Glucose 88 (70-105) mg/dL Calcium 8.7 (8.6-10.4) mg/dl Adrenal panel 03/19/17 Range/Units 04:30 Sodium 140 (133-145) mmol/L Potassium 3.6 (3.3-5.1) mmol/L Chloride 102 (96-108) mmol/L Carbon Dioxide 25 (22-30) mmol/L BUN 5 L (6-20) mg/dl Creatinine 0.7 (0.7-1.2) mg/dl Glucose 88 (70-105) mg/dL Calcium 8.7 (8.6-10.4) mg/dl Total Bilirubin 0.8 (0.0-1.0) mg/dL AST 65 H (0-37) U/l ALT 95 H (0-40) U/l Alkaline Phosphatase 65 (39-117) U/L Total Protein 5.9 (5.9-8.4) gm/dL Albumin 3.4 (3.2-5.2) gm/dL Assessment and Plan (1) Adynamic ileus Status: Acute Assessment and plan: Milk of magnesia 30 cc every 4 hours 3 doses Follow-up abdominal series in the morning Continue on clear liquid diet (2) Peritoneal fluid collection Status: Acute (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
[2017-03-19] MEDS ORDERED: POTASSIUM PHOSPHATE 40 MEQ in DEXTROSE 5% IN WATER 500 ML IV ONE (19:03)
[2017-03-19] MEDS ORDERED: POTASSIUM PHOSPHATE 22 MEQ/5 ML VIAL IV ONE ×2 (20:11→20:18)
[2017-03-20] MEDS: METOCLOPRAMIDE 10 MG/2 ML VIAL IV SCH (05:35)
[2017-03-20] MEDS: 0.9 % SODIUM CHLORIDE 10 ML SYRINGE IV SCH (05:50)
[2017-03-20] MEDS: PANTOPRAZOLE 40 MG VIAL IV SCH (06:58)
[2017-03-20 07:39] LABS: Basophils # (Auto) 0.1 K/mcL (0.0-0.3); Basophils % (Auto) 0.8 % (0.0-2.0); Eosinophils # (Auto) 0.2 K/mcL (0.0-0.7); Eosinophils % (Auto) 2.3 % (0.0-7.0); Granulocytes % (Auto) 66.7 % (38.0-78.0); Lymphocytes # (Auto) 1.5 K/mcL (1.5-4.8); Lymphocytes % (Auto) 19.9 % (15.5-49.0); Mean Cell Volume 90.2 fL (80.0-100.0); Mean Corpuscular HGB Conc 33.6 g/dL (31.0-36.0); Mean Corpuscular Hemoglobin 30.3 pg (26.0-34.0); Monocytes # (Auto) 0.8 K/mcL (0.1-0.9); Monocytes % (Auto) 10.3 % (1.0-12.0); Platelet Count 181 K/mcL (140-440); RBC 4.75 M/mcL (4.50-5.90); Red Cell Distribution Width 12.4 % (11.5-14.5)
--- NOTE | 2017-03-20 11:59 | Discharge Summary ---
Providers - Providers Patient information: Note initiated : 03/20/17 at 11:55 am Service Date, if different from initiated Date: [] Patient: Nirmal Chow 36 y/o M admitted on 03/14/17 for Reposition Peritoneal Catheter. Chief Complaint: [] Date of admission: 03/13/17 Discharge date: 03/20/17 Attending physician: Jay Montejo Hospitalization Hospital course: 36-year-old male with history of severe traumatic brain injury and need for ventriculoperitoneal shunt. Patient has been indwelling for about 10 years and he developed an encapsulated cyst around the shunt such that he was collecting over 2 L of fluid in the cyst. The fluid was drained but recurred very rapidly. It also left a large mass in his right flank. The patient was scheduled for laparoscopic drainage of the cyst and repositioning of the catheter however intraoperatively he had extensive peritoneal adhesions which required laparotomy and extensive adhesiolysis. About 2-1/2 L of fluid was drained and the catheter was positioned in the pelvis. In the postoperative period he had a prolonged ileus with multiple episodes of nausea and vomiting. He required nasogastric suction and slow advancement of diet. At this time he is stable and is having regular bowel movements. He is tolerating a soft diet without difficulty. He is stable for discharge home. Discharge diagnosis: Encapsulated cyst right lower abdomen Secondary discharge diagnosis: Extensive intra-abdominal adhesions Postoperative ileus with nausea and vomiting History of severe traumatic brain injury, remote Reason for admission: Recurrent encapsulated peritoneal cyst Procedures: Exploratory laparotomy with drainage of large cystic structure and repositioning of peritoneal catheter Complications: postoperative ileus Exam Temp Pulse Resp BP Pulse Ox 97.9 F 78 16 103/65 95 03/20/17 07:42 03/20/17 07:42 03/20/17 07:42 03/20/17 07:42 03/20/17 07:42 - General physical appearance well developed, well nourished, no distress - Eyes PERRL, normal ocular movement - ENT normal pinna, normal nares, normal mucosa, no hearing loss, no congestion - Head Head exam IM: Present: normocephalic (Extensive deformity and scarring from old traumatic cranial injury) - Neck no masses, no bruits, trachea midline, no lymphadectomy, no venous distension - Cardiovascular Cardiovascular exam IM: Present: normal rate and rhythm - Respiratory normal expansion, normal respiratory effort, clear to percussion, clear to auscultation - Abdomen Abdomen: Present: soft, tender, bowel sounds, distended (Mild distention with active bowel sounds and healing incision) Hernia: Present: none - Genitourinary Present: normal penis with no external lesions - Integumentary Present: no rash, no growths, no abnormal pigmentation - Neurologic Present: normal sensation, other (Mild left-sided weakness) - Musculoskeletal Present: normal gait, normal posture - Psychiatric Present: oriented to time, oriented to person, oriented to place, speech is normal, memory intact Discharge Plan - Patient/Caregiver Discharge Instructions Activity: increase activity as tolerated Diet: Regular Diet - Follow up Plan Follow up with: Jay Montejo MD [Physician] - 03/26/17 8:15 am Disposition: Home, Self-Care Prognosis: Good Rehab Potential: Good I certify that the patient requires SNF services.: No Overall status at discharge: patient is not back to baseline Pending Studies Resuscitation Status Full Code Diet Regular Diet Start Kaci Sep 14 Dinner Hydromorphone HCl (Dilaudid) 1 mg IV Q2HP PRN PRN Reason: Pain Last Admin: 03/14/17 13:32 Dose: 1 mg Admin: 03/14/17 08:28 Dose: 1 mg Admin: 03/14/17 03:15 Dose: 1 mg Admin: 03/13/17 22:59 Dose: 1 mg Metoclopramide HCl (Reglan) 10 mg IV Q6 RAFFAELE Last Admin: 03/20/17 05:35 Dose: 10 mg Admin: 03/19/17 23:34 Dose: 10 mg Admin: 03/19/17 17:44 Dose: 10 mg Admin: 03/19/17 12:21 Dose: 10 mg Admin: 03/19/17 05:43 Dose: 10 mg Admin: 03/19/17 00:00 Dose: 10 mg Admin: 03/18/17 17:57 Dose: 10 mg Admin: 03/18/17 12:41 Dose: 10 mg Admin: 03/18/17 05:57 Dose: 10 mg Admin: 03/18/17 00:36 Dose: 10 mg Admin: 03/17/17 17:58 Dose: 10 mg Admin: 03/17/17 12:06 Dose: 10 mg Admin: 03/17/17 06:33 Dose: 10 mg Admin: 03/16/17 23:26 Dose: 10 mg Admin: 03/16/17 18:02 Dose: 10 mg Admin: 03/16/17 11:57 Dose: 10 mg Admin: 03/16/17 05:20 Dose: 10 mg Admin: 03/15/17 23:24 Dose: 10 mg Admin: 03/15/17 17:12 Dose: 10 mg Admin: 03/15/17 11:35 Dose: 10 mg Admin: 03/15/17 05:20 Dose: 10 mg Admin: 03/14/17 23:36 Dose: 10 mg Admin: 03/14/17 17:43 Dose: 10 mg Ondansetron HCl (Zofran) 4 mg IV Q4HP PRN PRN Reason: Nausea Last Admin: 03/18/17 06:13 Dose: 4 mg Admin: 03/18/17 02:15 Dose: 4 mg Admin: 03/15/17 03:24 Dose: 4 mg Admin: 03/14/17 06:49 Dose: 4 mg Admin: 03/14/17 03:07 Dose: 4 mg Admin: 03/13/17 22:49 Dose: 4 mg Pantoprazole Sodium (Protonix) 40 mg IV [facility] Last Admin: 03/20/17 06:58 Dose: 40 mg Admin: 03/19/17 17:44 Dose: 40 mg Admin: 03/19/17 07:23 Dose: 40 mg Admin: 03/18/17 17:57 Dose: 40 mg Admin: 03/18/17 08:15 Dose: 40 mg Admin: 03/17/17 17:12 Dose: 40 mg Admin: 03/17/17 07:39 Dose: 40 mg Admin: 03/16/17 18:02 Dose: 40 mg Admin: 03/16/17 07:54 Dose: 40 mg Admin: 03/15/17 17:12 Dose: 40 mg Admin: 03/15/17 07:30 Dose: 40 mg Admin: 03/14/17 17:43 Dose: 40 mg Sodium Chloride (Saline Flush) 10 ml IV Q8 RAFFAELE Last Admin: 03/20/17 05:50 Dose: 10 ml Admin: 03/19/17 21:15 Dose: 10 ml Admin: 03/19/17 14:05 Dose: Not Given Admin: 03/19/17 05:43 Dose: Not Given Admin: 03/19/17 00:01 Dose: Not Given Admin: 03/18/17 17:58 Dose: Not Given Admin: 03/18/17 05:57 Dose: Not Given Admin: 03/17/17 23:37 Dose: Not Given Admin: 03/17/17 13:21 Dose: Not Given Admin: 03/17/17 06:06 Dose: Not Given Admin: 03/16/17 23:26 Dose: Not Given Admin: 03/16/17 12:33 Dose: Not Given Admin: 03/16/17 05:20 Dose: Not Given Admin: 03/15/17 22:28 Dose: Not Given Admin: 03/15/17 13:51 Dose: Not Given Admin: 03/15/17 05:44 Dose: Not Given Admin: 03/14/17 21:53 Dose: Not Given Admin: 03/14/17 13:26 Dose: Not Given Admin: 03/14/17 05:41 Dose: Admin: 03/14/17 03:07 Dose: 10 ml Admin: 03/13/17 23:00 Dose: 10 ml Admin: 03/13/17 14:53 Dose: Not Given Shift Summary 03/20/17 03:31 Shift Summary by Stoney Hanson No c/o pain or nausea this shift. Midline incision to abdomen covered with CDI tegaderm dressing. RFA IV infiltrated 03/19/17 during am shift. RFA very edematous with large bruising and redness. Measurements taken and FA marked. Photo taken. Suggested mist therapy to Dr. Montejo, however he is unaware of mist therapy treatment and did not order. 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 IV LFA SL. K- Phos rider administered at beginning of shift. Uses IS if reminded. Ambulates independently w/FWW. Weakness and unsteady gait d/t left foot drop, WNL for pt. Tolerating regular diet. May d/c today. Initialized on 03/20/17 03:31 - END OF NOTE
[2017-03-20] MEDS ORDERED: FLU VACC QS2017-18 36MOS UP/PF 60 MCG/0.5 ML SYRINGE IM ONE (12:41)
[2017-03-20 13:05] LABS: ALT/SGPT 97 U/l (0-40); Albumin 3.7 gm/dL (3.2-5.2); Albumin/Globulin Ratio 1.3 (1.0-2.3); Alkaline Phosphatase 71 U/L (39-117); Bilirubin,Direct < 0.2 mg/dL (0.0-0.3); Blood Urea Nitrogen 3 mg/dl (6-20); Gamma Glutamyl Transpeptidase 37 U/L (8-61); Uric Acid 2.9 mg/dL (2.5-8.0)
== END 2017-03-20 13:10 | disposition home or self-care (01) | DRG 982 ==
LOC: SUR 07:20 → MEDSUR 13:50
PROVIDERS: ADMIT Family Medicine Adult Medicine; ATTEND Family Medicine Adult Medicine

== ENCOUNTER 2022-02-10 10:15 | Inpatient (IN) ==
--- NOTE | 2022-02-10 11:06 | XRay Report ---
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 No focal pulmonary parenchymal infiltrate or mass Heart, vascular: No significant cardiomegaly. Pulmonary vascularity is normal. No pulmonary edema or pulmonary congestion Mediastinum, isi: No mediastinal widening. No hilar mass Pleura:No pleural fluid. No pleural-based mass or calcification Thoracic spine, ribs: Incidental note is made of fusion of the anterior fifth and sixth ribs bilaterally, unchanged. No acute abnormalities IMPRESSION: 1. Negative PA and lateral chest x-ray 2. No interval change Interpreted and Authenticated by: Tom Field 02/10/22
--- NOTE | 2022-02-10 11:10 | XRay Report ---
INDICATION: bloating TECHNIQUE: Supine and upright abdomen. COMPARISON: Previous CT scan dated 05/26/2018. Previous abdomen dated 03/19/2017 FINDINGS:Ventriculoperitoneal shunt catheter is present. There is gas and fecal material within the colon. There is a paucity of gas in the mid and right side of the abdomen. This may be due to intra-abdominal fluid or mass. CT scan recommended. Patient has undergone previous open reduction and internal fixation of left acetabular fracture IMPRESSION: Relative lack of bowel gas within the right side of the abdomen. CT scan recommended to exclude underlying mass or fluid Interpreted and Authenticated by: Tom Field 02/10/22
[2022-02-10 11:51] LABS: Basophils # (Auto) 0.06 K/mcL (0.00-0.30); Eosinophils # (Auto) 0.04 K/mcL (0.00-0.70); Eosinophils % (Auto) 0.7 % (0.0-7.0); Hematocrit 43.7 % (40.1-51.0); Hemoglobin 14.6 g/dL (13.7-17.5); Lymphocytes # (Auto) 1.38 K/mcL (1.50-4.80); Lymphocytes % (Auto) 24.1 % (15.5-49.0); Mean Corpuscular HGB Conc 33.4 g/dL (31.0-36.0); Mean Platelet Volume 10.8 fL (7.4-10.4); Monocytes # (Auto) 0.62 K/mcL (0.10-0.90); Monocytes % (Auto) 10.8 % (1.0-12.0); Neutrophils % (Auto) 63.1 % (38.0-78.0); Platelet Count 132 K/mcL (140-440); Red Cell Distribution Width 12.6 % (11.5-14.5); WBC 5.7 K/mcL (4.5-11.0)
[2022-02-10 12:10] LABS: ALT/SGPT 22 U/L (<40); AST/SGOT 23 U/L (<40); Albumin 4.2 gm/dL (3.2-5.2); Albumin/Globulin Ratio 1.6 (1.0-2.3); Alkaline Phosphatase 87 U/L (39-117); Bilirubin,Total 0.4 mg/dL (0.1-1.0); Blood Urea Nitrogen 9 mg/dL (6-20); Calcium 9.2 mg/dL (8.6-10.4); Carbon Dioxide 28 mmol/L (22-30); Chloride 106 mmol/L (96-108); Globulin 2.6 gm/dL (2.2-3.7); Glomerular Filtration Rate 104; Glucose 76 mg/dL (70-105)
[2022-02-10 12:20] LABS: Appearance,Urine Clear (Clear); Bacteria,Urine FEW /hpf (0); Bilirubin,Urine Negative (Negative); Calcium Oxalate Crystals,Urine FEW /hpf; Color,Urine Yellow; Culture Indicated,Urine Yes; Glucose,Urine (UA) Negative (Negative); Ketones,Urine Trace mg/dL (Negative); Leukocyte Esterase,Urine Negative /uL (Negative); Mucus,Urine MANY /hpf; Nitrate,Urine Negative (Negative); PH,Urine 5.5 (5.0-9.0); Specific Gravity,Urine >= 1.030 (1.000-1.035); Urine Blood Negative ery/mcL (Negative); Urine Budding Yeast FEW /hpf; Urine RBC 17 /hpf (0-3); Urine Squamous Epithelial Cell 1 /hpf (0-4); Urine WBC 2 /hpf (0-4); Urobilinogen,Urine Normal
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
--- NOTE | 2022-02-10 13:44 | Cat Scan Report ---
INDICATION: Abdominal pain COMPARISON: Previous abdominal CT scans dated 05/26/2018, 02/27/2017 TECHNIQUE: Axial images were obtained through the abdomen and pelvis. Sagittally and coronally reformatted images. 80 mL Isovue 370 injected intravenously. Oral contrast material was not administered FINDINGS: Lung bases:Negative. No pulmonary parenchymal nodule. No pleural fluid or pericardial fluid Liver:Negative. No focal intrahepatic mass. No focal abnormality. Liver contour is smooth. No evidence for cirrhosis Gallbladder, bilary: Gallbladder is small. No calcified gallstones. No dilated bile ducts Spleen:No splenomegaly. Normal enhancement of splenic and portal veins. Pancreas:No pancreatic mass. No peripancreatic abnormality Adrenal glands:Negative Kidneys,ureters,bladder:Negative left kidney. No solid or cystic mass. There is no hydronephrosis. No right renal mass. No obstructing or nonobstructing calculi. There is moderate right hydronephrosis and proximal hydroureter. Distal right ureter is not well visualized due to large amount of intraperitoneal fluid. A right ureteral calculus is not identified. Right hydronephrosis and proximal hydroureter may be secondary to compression of the ureter due to this large septated intra-abdominal fluid collection. No bladder stone. No detectable bladder mass. Gastrointestinal:No detectable colonic mass. There is no diverticulitis. Negative small bowel. No mechanical small bowel obstruction. No bowel wall thickening. No focal abnormality. Negative stomach and duodenum. No focal abnormality. Appendix: The appendix is not visualized. No evidence for appendicitis. The cecum is displaced superiorly in the right upper quadrant Vascular:Negative abdominal aorta. Superior mesenteric artery and celiac trunk are normal. Normal opacification of the inferior mesenteric artery Lymphatic:No retroperitoneal or mesenteric adenopathy Mesentery, peritoneum: There is a ventriculoperitoneal shunt catheter. This was present on previous examinations. There is a large amount of intraperitoneal fluid. This is not simple ascites. There are septations. Previous examinations demonstrated intraperitoneal fluid although this has increased significantly. Appearance is most consistent with pseudocyst secondary to ventriculoperitoneal shunt catheter. This is a rare complication of [employer] shunts but does occur. There has been significant interval progression since prior examinations. There are no peritoneal based masses identified. No detectable peritoneal metastases. No definite gas within these fluid collections. There are some gas bubbles which are probably within effaced small bowel. No discrete abscess identified Reproductive:Prostate is not significantly enlarged Musculoskeletal:No lumbar compression fractures. Sacrum and pelvis are negative. No acute hip fracture. Patient has undergone previous open reduction and internal fixation of left acetabular fracture. There are findings consistent with healed left hip fracture No abdominal wall or inguinal hernia IMPRESSION: 1. Ventriculoperitoneal shunt catheter within the arterial space. 2. Large amount of intraperitoneal fluid. This is septated and is increased significantly since 05/26/2018. Appearance is consistent with large pseudocysts related to the ventriculoperitoneal shunt catheter. 3. Moderate right hydronephrosis and proximal right hydroureter. This is probably secondary to compression by the large fluid collections 4. Intraperitoneal fluid collections have increased significantly since 05/26/2018 5. Small gas bubbles are probably within effaced small bowel. Appearance is not consistent with abscess 6. Healed left hip fracture. Previous open reduction and internal fixation of left acetabular fracture The exam was performed using radiation dose optimization techniques including, but not limited to, automated exposure control, adjustment of the mA and/or kV according to patient size and use of iterative reconstruction technique. Interpreted and Authenticated by: Tom Field 02/10/22
[2022-02-10] MEDS ORDERED: PIPERACILLIN SODIUM/TAZOBACTAM 3.375 GM in DEXTROSE 5% IN WATER 50 ML IV SCH (14:45)
[2022-02-10] MEDS ORDERED: IOPAMIDOL 100 ML BOTTLE IV ONE (16:02)
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
[2022-02-10] MEDS ORDERED: ALBUTEROL SULFATE 200 PUFF INHALER INH PRN (18:51)
[2022-02-10] MEDS ORDERED: HYDROmorphone 1 MG/ML SYRINGE IV PRN (18:53)
[2022-02-10] MEDS: CEFEPIME 1 GM VIAL IV SCH (19:07)
[2022-02-10 19:55] LABS: INR 0.9 (0.9-1.1)
[2022-02-11] MEDS: CEFEPIME 1 GM VIAL IV SCH ×3 (03:59→22:09)
[2022-02-11] MEDS ORDERED: LIDOCAINE HCL/PF 100 MG/5 ML SYRINGE IV ONE (15:21)
[2022-02-11] MEDS ORDERED: PHENYLephrine 1 MG/10 ML SYRINGE (ANEST) ONE (15:21)
[2022-02-11] MEDS ORDERED: MAGNESIUM SULFATE 2 GM/50 ML BAG IV ONE (15:21)
[2022-02-11] MEDS ORDERED: fentaNYL 100 MCG/2 ML VIAL IV ONE (15:21)
[2022-02-11] MEDS ORDERED: KETAMINE 50 MG/ML Syringe (ANEST) IV ONE (15:21)
[2022-02-11] MEDS ORDERED: ROPIVACAINE HCL/PF 30 ML VIAL IJ ONE (15:21)
[2022-02-11] MEDS ORDERED: PROPOFOL 200 MG/20 ML VIAL IV ONE (15:21)
[2022-02-11] MEDS ORDERED: LIDOCAINE W/EPI 2% 20 ML VIAL ONE (15:21)
[2022-02-11] MEDS ORDERED: ONDANSETRON 4 MG/2 ML VIAL ONE (15:21)
[2022-02-11] MEDS ORDERED: DEXAMETHASONE 10 MG/ML VIAL ONE (15:21)
[2022-02-11] MEDS ORDERED: ROCURONIUM 10 MG/ML ML IV ONE (15:21)
[2022-02-11] MEDS ORDERED: GLYCOPYRROLATE 0.2 MG/ML VIAL IV ONE (15:21)
--- NOTE | 2022-02-11 16:49 | Brief Operative Note ---
Brief Operative Note Date of procedure: 02/11/22 Pre-op diagnosis: peritoneal cystocoele Post-op diagnosis: other (peritoneal cystocoele) Procedure: laparotomy with drainage of pseudocyet of peritoneum( 6000cc) reposition of peritoneal shunt Grafts/Implants: No Anesthesia: GETA Findings: multiloculated collection of peritoneal spinal fluid (6000cc) Complications: none Surgeon: Jay Montejo Estimated blood loss (cc): 25 Specimens Removed/Pathology: none sent Condition: stable Disposition: PACU
[2022-02-11] MEDS ORDERED: morphine 2 MG/ML VIAL IV PRN (17:03)
[2022-02-11] MEDS ORDERED: NALOXONE HCL 0.4 MG/ML VIAL IV PRN (17:03)
[2022-02-11] MEDS ORDERED: PROMETHAZINE 25 MG/ML VIAL IM PRN (17:03)
[2022-02-11] MEDS ORDERED: ONDANSETRON 4 MG/2 ML VIAL IV PRN (17:03)
[2022-02-11] MEDS ORDERED: KETOROLAC 30 MG/ML VIAL IV PRN (17:03)
[2022-02-11] MEDS ORDERED: HYDROmorphone 0.5 MG/0.5 ML SYRINGE IV PRN (17:03)
[2022-02-11] MEDS ORDERED: PROMETHAZINE 25 MG/ML VIAL IV PRN (17:03)
[2022-02-11] MEDS ORDERED: LACTATED RINGERS 250 ML IV PRN (17:03)
[2022-02-11] MEDS ORDERED: IPRATROPIUM/ALBUTEROL 3 ML AMPUL.NEB NEB PRN (17:03)
[2022-02-11] MEDS ORDERED: MEPERIDINE 50 MG/ML VIAL IM PRN (17:03)
[2022-02-11] MEDS ORDERED: MEPERIDINE 25 MG/ML VIAL IV PRN (17:13)
[2022-02-11] MEDS ORDERED: LACTATED RINGERS 1,000 ML IV SCH (17:15)
[2022-02-11] MEDS ORDERED: ACETAMINOPHEN 1,000 MG/100 ML BAG IV SCH (17:15)
[2022-02-11] MEDS: fentaNYL 100 MCG/2 ML VIAL IV PRN ×2 (17:23→17:37)
[2022-02-11] MEDS: METOCLOPRAMIDE 10 MG/2 ML VIAL IV SCH ×2 (19:07→23:01)
[2022-02-11] MEDS: ACETAMINOPHEN 1,000 MG/100 ML BAG IV PRN (19:37)
[2022-02-12] MEDS ORDERED: 0.9 % SODIUM CHLORIDE 1,000 ML IV ONE (01:31)
[2022-02-12] MEDS ORDERED: ONDANSETRON 4 MG/2 ML VIAL IV PRN (01:33)
[2022-02-12] MEDS ORDERED: ONDANSETRON 4 MG/2 ML VIAL ONE (01:45)
[2022-02-12] MEDS: ACETAMINOPHEN 1,000 MG/100 ML BAG IV PRN ×4 (02:57→21:52)
[2022-02-12] MEDS: 0.9 % SODIUM CHLORIDE 1,000 ML IV SCH ×3 (02:57→18:22)
[2022-02-12] MEDS: CEFEPIME 1 GM VIAL IV SCH ×3 (05:35→21:54)
[2022-02-12] MEDS: METOCLOPRAMIDE 10 MG/2 ML VIAL IV SCH ×4 (05:36→23:50)
[2022-02-12 06:34] LABS: Basophils # (Auto) 0.01 K/mcL (0.00-0.30); Basophils % (Auto) 0.1 % (0.0-2.0); Eosinophils # (Auto) 0 K/mcL (0.00-0.70); Eosinophils % (Auto) 0 % (0.0-7.0); Hematocrit 32.5 % (40.1-51.0); Hemoglobin 10.8 g/dL (13.7-17.5); Lymphocytes # (Auto) 1.15 K/mcL (1.50-4.80); Lymphocytes % (Auto) 11.3 % (15.5-49.0); Mean Cell Volume 90.8 fL (80.0-100.0); Mean Corpuscular HGB Conc 33.2 g/dL (31.0-36.0); Mean Platelet Volume 11.5 fL (7.4-10.4); Monocytes # (Auto) 1.39 K/mcL (0.10-0.90); Monocytes % (Auto) 13.6 % (1.0-12.0); Neutrophils % (Auto) 74.7 % (38.0-78.0); Platelet Count 147 K/mcL (140-440); RBC 3.58 M/mcL (4.63-6.08); Red Cell Distribution Width 12.4 % (11.5-14.5); WBC 10.2 K/mcL (4.5-11.0)
[2022-02-12 06:52] LABS: ALT/SGPT 14 U/L (<40); AST/SGOT 17 U/L (<40); Albumin 2.9 gm/dL (3.2-5.2); Albumin/Globulin Ratio 1.5 (1.0-2.3); Alkaline Phosphatase 64 U/L (39-117); Bilirubin,Direct < 0.2 mg/dL (0-0.3); Bilirubin,Total 0.5 mg/dL (0.1-1.0); Blood Urea Nitrogen 5 mg/dL (6-20); Calcium 8.1 mg/dL (8.6-10.4); Carbon Dioxide 25 mmol/L (22-30); Chloride 109 mmol/L (96-108); Glomerular Filtration Rate 109; Glucose 115 mg/dL (70-105); Lactate Dehydrogenase 135 U/L (135-225); Phosphorous 2.9 mg/dL (2.5-4.5); Triglycerides 35 mg/dL (<150)
--- NOTE | 2022-02-12 14:56 | General Surgery Progress Note ---
SUBJECTIVE Subjective Patient information: Note initiated : 02/12/22 at 2:52 pm Service Date, if different from initiated Date: [] Patient: Nirmal Chow 41 y/o M admitted on 02/10/22 for Distended Abd. Chief Complaint: [] Interval history: Patient is doing well. His pain is well controlled without narcotic analgesics. He has passed flatus but has not had a bowel movement. No complaint of nausea. Constitutional Vitals: Vital Signs Temp Pulse Resp BP Pulse Ox O2 Del Method 98.1 F 100 H 18 101/65 96 02/12/22 11:08 02/12/22 11:08 02/12/22 11:08 02/12/22 11:08 02/12/22 11:08 02/12/22 11:08 Period Temp Pulse Resp BP Sys/Rodriguez Pulse Ox O2 Del Method O2 Flow Rate Last 24 Hr 97.1 F-99.5 F 89-120 12-19 81-135/33-102 92-99 Room Air-Room Air Intake and Output 02/12/22 02/12/22 02/12/22 05:59 13:59 21:59 Intake Total 1998 1550 Output Total 1050 Balance 949 1550 Weight 176 lb Intake & Output: Intake & Output 02/12/22 02/12/22 02/12/22 05:59 13:59 21:59 Intake Total 1998 1550 Output Total 1050 Balance 949 1550 Weight 176 lb Intake: IV 1099 1100 Sodium Chloride 0.9% 1,000 ml @ 999 1000 150 mls/hr IV .Q6H40M [facility] Rx#: [id number] Oral 900 450 Output: Void Amount 1050 Other: Meal Lunch Percent of Meal Consumed 50% Feeding Ability Assist with Tray Set Up Urine Appearance Clear Urine Color Bright Yellow # Voids 1 Head Head exam: Present normal inspection Neck Neck exam: Present full ROM and normal inspection; Absent tenderness Respiratory Respiratory exam: Present normal respiratory exam and CTAB; Absent rales, rhonchi or wheezes Cardiovascular Cardiovascular exam: Present normal rate and rhythm, RRR, +S1 and +S2; Absent gallop or JVD GI/Abdominal GI/Abdominal exam: Present normal bowel sounds, soft and distended (Mild distention but soft abdomen) Extremities Exam Extremities exam: Present full ROM, normal inspection and neurovascular intact; Absent pedal edema Neurological Exam Neurological exam: Present abnormal gait, alert and oriented X3 Psychiatric Psychiatric exam: Present normal affect and normal mood A/P Assessment and plan (1) Retroperitoneal fluid collection: Status: Acute (2) Peritoneal fluid collection: Status: Acute Qualifiers: Ascites type: other type Qualified Code(s): R18.8 - Other ascites (3) Adynamic ileus: Status: Acute Plan continue present therapy And Reglan every 6 hours Time Spent With Patient Time: Total time spent is greater than 50% in coordination of care (as documented) at patient's floor/unit and/or counseling patient:
[2022-02-13] MEDS: 0.9 % SODIUM CHLORIDE 1,000 ML IV SCH ×4 (01:13→15:46)
[2022-02-13] MEDS: ACETAMINOPHEN 1,000 MG/100 ML BAG IV PRN ×3 (03:49→21:00)
[2022-02-13] MEDS: METOCLOPRAMIDE 10 MG/2 ML VIAL IV SCH ×4 (05:18→22:59)
[2022-02-13] MEDS: CEFEPIME 1 GM VIAL IV SCH ×3 (05:18→21:01)
[2022-02-13 06:47] LABS: Basophils # (Auto) 0.04 K/mcL (0.00-0.30); Basophils % (Auto) 0.5 % (0.0-2.0); Eosinophils # (Auto) 0.03 K/mcL (0.00-0.70); Eosinophils % (Auto) 0.4 % (0.0-7.0); Hematocrit 27.3 % (40.1-51.0); Lymphocytes # (Auto) 1.45 K/mcL (1.50-4.80); Mean Cell Volume 92.5 fL (80.0-100.0); Mean Platelet Volume 11.1 fL (7.4-10.4); Monocytes # (Auto) 1.04 K/mcL (0.10-0.90); Monocytes % (Auto) 12.9 % (1.0-12.0); Neutrophils % (Auto) 67.8 % (38.0-78.0); Platelet Count 108 K/mcL (140-440); RBC 2.95 M/mcL (4.63-6.08); Red Cell Distribution Width 12.9 % (11.5-14.5)
[2022-02-13 07:08] LABS: ALT/SGPT 20 U/L (<40); AST/SGOT 27 U/L (<40); Albumin 2.6 gm/dL (3.2-5.2); Albumin/Globulin Ratio 1.4 (1.0-2.3); Alkaline Phosphatase 59 U/L (39-117); Bilirubin,Direct < 0.2 mg/dL (0-0.3); Bilirubin,Total 0.3 mg/dL (0.1-1.0); Blood Urea Nitrogen 5 mg/dL (6-20); Calcium 7.8 mg/dL (8.6-10.4); Carbon Dioxide 26 mmol/L (22-30); Chloride 110 mmol/L (96-108); Globulin 1.9 gm/dL (2.2-3.7); Glomerular Filtration Rate 115; Glucose 101 mg/dL (70-105); Lactate Dehydrogenase 135 U/L (135-225); Phosphorous 1.7 mg/dL (2.5-4.5); Triglycerides 48 mg/dL (<150); Uric Acid 2.1 mg/dL (2.5-8.0)
--- NOTE | 2022-02-13 17:43 | General Surgery Progress Note ---
SUBJECTIVE Subjective Patient information: Note initiated : 02/13/22 at 5:40 pm Service Date, if different from initiated Date: [] Patient: Nirmal Chow 41 y/o M admitted on 02/10/22 for Distended Abd. Chief Complaint: [] Interval history: Patient continues to improve. He is tolerating full liquid diet. He is having copious flatus. He denies nausea. White blood count 8000, hemoglobin 9, potassium BUN and creatinine are normal. Constitutional Vitals: Vital Signs Temp Pulse Resp BP Pulse Ox O2 Del Method 98.6 F 98 H 18 105/68 96 02/13/22 15:39 02/13/22 15:39 02/13/22 15:39 02/13/22 15:39 02/13/22 15:39 02/13/22 15:39 Period Temp Pulse Resp BP Sys/Rodriguez Pulse Ox O2 Del Method O2 Flow Rate Last 24 Hr 97.3 F-99.5 F 89-102 12-18 98-118/57-78 94-97 Room Air-Room Air Intake and Output 02/13/22 02/13/22 02/13/22 05:59 13:59 21:59 Intake Total 1500 1177 1550 Output Total 900 1875 450 Balance 600 -698 1100 Intake & Output: Intake & Output 02/13/22 02/13/22 02/13/22 05:59 13:59 21:59 Intake Total 1500 1177 1550 Output Total 900 1875 450 Balance 600 -698 1100 Intake: IV 7253 848 7262 Sodium Chloride 0.9% 1,000 ml @ 5510 161 7747 150 mls/hr IV .Q6H40M [facility] Rx#: [id number] Oral 300 220 450 Output: Void Amount 900 1875 450 Other: Meal Lunch Lunch Percent of Meal Consumed 50% 100% Feeding Ability Independent Independent Urine Appearance Clear Clear Clear Urine Color Yellow Yellow Bright Yellow Pale Urine Odor Normal Neck Neck exam: Present normal inspection Respiratory Respiratory exam: Present normal respiratory exam and CTAB Cardiovascular Cardiovascular exam: Present normal rate and rhythm, RRR, +S1 and +S2; Absent gallop or JVD GI/Abdominal GI/Abdominal exam: Present normal bowel sounds and distended (Mild distention but soft and pliable) Additional comments: Incision looks unremarkable Extremities Exam Extremities exam: Present normal capillary refill and normal inspection A/P Assessment and plan (1) Retroperitoneal fluid collection: Status: Acute (2) Peritoneal fluid collection: Status: Acute Qualifiers: Ascites type: other type Qualified Code(s): R18.8 - Other ascites (3) Adynamic ileus: Status: Acute (4) 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
[2022-02-14] MEDS: 0.9 % SODIUM CHLORIDE 1,000 ML IV SCH (03:09)
[2022-02-14] MEDS: METOCLOPRAMIDE 10 MG/2 ML VIAL IV SCH ×2 (05:34→11:26)
[2022-02-14] MEDS: CEFEPIME 1 GM VIAL IV SCH ×2 (05:34→15:04)
[2022-02-14 06:45] LABS: Basophils # (Auto) 0.05 K/mcL (0.00-0.30); Basophils % (Auto) 0.9 % (0.0-2.0); Eosinophils % (Auto) 1.8 % (0.0-7.0); Lymphocytes # (Auto) 1.35 K/mcL (1.50-4.80); Lymphocytes % (Auto) 24.1 % (15.5-49.0); Mean Cell Volume 91.9 fL (80.0-100.0); Mean Corpuscular HGB Conc 34.6 g/dL (31.0-36.0); Mean Platelet Volume 11.4 fL (7.4-10.4); Monocytes # (Auto) 0.67 K/mcL (0.10-0.90); Monocytes % (Auto) 11.9 % (1.0-12.0); Neutrophils % (Auto) 60.9 % (38.0-78.0); Platelet Count 96 K/mcL (140-440); RBC 2.83 M/mcL (4.63-6.08); Red Cell Distribution Width 12.9 % (11.5-14.5); WBC 5.6 K/mcL (4.5-11.0)
[2022-02-14 06:55] LABS: ALT/SGPT 20 U/L (<40); AST/SGOT 28 U/L (<40); Albumin 2.6 gm/dL (3.2-5.2); Albumin/Globulin Ratio 1.2 (1.0-2.3); Alkaline Phosphatase 64 U/L (39-117); Bilirubin,Direct < 0.2 mg/dL (0-0.3); Bilirubin,Total 0.3 mg/dL (0.1-1.0); Blood Urea Nitrogen 5 mg/dL (6-20); Calcium 8.3 mg/dL (8.6-10.4); Carbon Dioxide 30 mmol/L (22-30); Chloride 110 mmol/L (96-108); Globulin 2.2 gm/dL (2.2-3.7); Glomerular Filtration Rate 122; Glucose 91 mg/dL (70-105); Lactate Dehydrogenase 151 U/L (135-225); Phosphorous 1.7 mg/dL (2.5-4.5); Triglycerides 69 mg/dL (<150); Uric Acid 1.8 mg/dL (2.5-8.0)
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
--- NOTE | 2022-02-19 14:45 | Operative Note ---
DATE OF OPERATION: 02/11/2022 PREOPERATIVE DIAGNOSIS: Peritoneal cystocele due to spinal fluid leak. POSTOPERATIVE DIAGNOSIS: Peritoneal cystocele due to spinal fluid leak. PROCEDURE: Laparotomy with drainage of multiple pseudocysts of the peritoneum and repositioning of the peritoneal shunt. SURGEON: aJy Montejo M.D. FINDINGS: Multiple multiloculated collections of peritoneal fluid due to spinal fluid; 6000 mL were collected and other spilled on the operating field. DESCRIPTION OF PROCEDURE: Under general anesthesia, the patient's abdomen was prepped and draped in a sterile field. A timeout procedure was carried out as per protocol. Upper midline incision was made. Upon entering through the peritoneum, there was a thick rind of inflamed tissue that was adherent. This was taken down using blunt dissection, so as not to injure any bowel. Once this was done, this tissue was aspirated and it contained clear spinal fluid. Using Metzenbaum scissors, the initial more superficial cavity was incised and entered. About 2500 mL of spinal fluid was collected. There were about five more smaller loculations that were dissected and suctioned. Some of the excess inflammatory tissue was removed. Adhesiolysis of the bowel was also carried out since most of the loops of the small bowel were involved. There was fluid in the retroperitoneum. Taking care to stay away from other structures, the bulging cystic cavity was aspirated and clear fluid was obtained. Using Metzenbaum scissors, the cavity was entered and another about 2800 mL of fluid was aspirated. Some of the excess inflammatory tissue was removed. The peritoneal shunt was placed more anteriorly beneath the anterior peritoneum. It was dissected back to the abdominal wall and then was placed down into the pelvis. Since all fluid was clear and there was no bleeding, no further irrigation was carried out. The fascia was closed with running locking #1 Prolene. Subcutaneous tissue was closed with 2-0 Monocryl. Skin was closed with esha. The patient tolerated the procedure well. Tegaderm dressing was placed. He was awakened and transferred to the postanesthetic care unit in satisfactory condition. LCS:osvaldo Job ID: [id number] Doc ID: [id number] aJy Montejo M.D.
== END 2022-02-14 16:05 | disposition home or self-care (01) | DRG 32 ==
LOC: ED 10:15 → MEDSUR 15:50
PROVIDERS: ADMIT Family Medicine Adult Medicine; ATTEND Family Medicine Adult Medicine